=== PATIENT | male | born 1980 | race African-American/Black ===

== ENCOUNTER 2020-01-14 09:10 | Emergency (ER) | payer OTHER, BC ==
--- NOTE | 2020-01-14 09:37 | EDM.PDOC ---
ED HPI GENERAL MEDICAL PROBLEM - General Chief Complaint: Laceration Time Seen by Provider: 01/14/20 09:29 Source of Information: Reports: Patient - History of Present Illness INITIAL COMMENTS - FREE TEXT/NARRATIVE: Shad is a 39 y/o male who comes to the ER with a work related injury. He was at his job at the [employer] and he was unfolding a chair and got his right index finger caught. He sustained a laceration on the distal portion of the right index finger. He reports getting an updated tetanus in August 2019. 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: Dressing(s) - Related Data Allergies Allergy/AdvReac Type Severity Reaction Status Date / Time No Known Allergies Allergy Verified 01/14/20 09:29 Home Meds: Home Meds Amoxicillin/Clavulanate K [Augmentin 875-125 MG] 1 tab PO BID 7 Days #14 tablet 01/14/20 [Rx] Hydrocodone/Acetaminophen [Hydrocodon-Acetaminophen 5-325] 1 - 2 each PO Q6H # 10 tablet 01/14/20 [Rx] Ibuprofen 800 mg PO Q8H #60 tablet 01/14/20 [Rx] ED ROS GENERAL - Review of Systems Review Of Systems: See Below Constitutional: Reports: No Symptoms HEENT: Reports: No Symptoms Respiratory: Reports: No Symptoms Cardiovascular: Reports: No Symptoms Endocrine: Reports: No Symptoms GI/Abdominal: Reports: No Symptoms : Reports: No Symptoms Musculoskeletal: Reports: Other (right index finger pain) Skin: Reports: Other (laceration to right index finger) Neurological: Reports: No Symptoms Psychiatric: Reports: No Symptoms Hematologic/Lymphatic: Reports: No Symptoms Immunologic: Reports: No Symptoms ED EXAM, SKIN/RASH Exam: See Below Exam Limited By: No Limitations General Appearance: Alert, WD/WN, No Apparent Distress (Adult male, NAD.) Ears: Hearing Grossly Normal Nose: Normal Inspection Throat/Mouth: Normal Voice, No Airway Compromise Respiratory/Chest: No Respiratory Distress Cardiovascular: Regular Rate, Rhythm GI/Abdominal: Soft (Male) Exam: Deferred Rectal (Males) Exam: Deferred Back Exam: Other (Deferred) Extremities: Other (Note spiral type laceration about 2.5 cm that wraps aroudn the distal end of the right index finger, mild bleeding. Edges of the laceation irregular in places. DIP and PIP joints wnl in digit.) Neurological: Alert, Oriented, CN II-XII Intact, Normal Cognition, Normal Gait Psychiatric: Normal Affect, Normal Mood Skin: Warm, Dry, Intact, Normal Color, No Rash Lymphatic: No Adenopathy ED SKIN PROCEDURES - Laceration/Wound Repair Right Sides of Distal Digit - 2nd (Index) Appearance: Irregular, Clean Distal NVT: Neuro & Vascular Intact, No Tendon Injury Anesthetic Type: Local Local Anesthesia - Lidocaine (Xylocaine): 1% with EPI Local Anesthetic Volume: Other (Digital block of right index finger done) Skin Prep: Chlorhexidine (Hibiciens), Providone-Iodine (Betadine), Saline, Sterile Drape Exploration/Debridement/Repair: Wound Explored, Wound Margins Revised Closed with: Sutures Lac/Wound length In cm: 2.5 Suture Size: 3-0 # of Sutures: 6 (Ethilon) Suture Type: Interrupted Sterile Dressing Applied: Provider Tetanus Status Addressed: Yes (Up to date) Complications: No Complication Description: Xray prior to laceration repair, notes fx of the distal phalynx. Patient to be given Ancef 2gm IM and placed on oral abx. Progress/Comments: Patient tolerated the repair well. He was given wound care instructions. He remained stable after the procedure. 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 Xray was obtained of the right index finger to rule out open fracture. Xray was reviewed and notes a fracture of the distal phalynx, non-displaced. The laceration was repaired. See Procedure Note. Patient was given Ancef 2gm due to the open fx. Will start him on a course of Augmentin also for the fx. Discharge instructions were reviewed with the patient and he left the ER in stable condition. Last Recorded V/S: Last Vital Signs Temp 36.1 C 01/14/20 09:15 Pulse 80 01/14/20 09:15 Resp 16 01/14/20 09:15 BP 140/101 H 01/14/20 09:15 Pulse Ox 99 01/14/20 09:15 - Orders/Labs/Meds Orders: Active Orders 24 hr Category Date Time Status Fingers Second Digit Rt F6 [CR] Stat Exams 01/14/20 09:31 Ordered Lidocaine 1% w/EPINEPHrine [Xylocaine 1% with Med 01/14/20 09:48 Ordered EPINEPHrine 1:100,000] 20 ml INFILT ONETIME PRN Medication Orders Lidocaine/Epinephrine (Xylocaine 1% With Epinephrine 1:100,000) 20 ml INFILT ONETIME PRN PRN Reason: Other Last Admin: 01/14/20 09:56 Dose: 20 ml Meds: Medications Generic Name Dose Route Start Last Admin Trade Name José Miguelq PRN Reason Stop Dose Admin Lidocaine/Epinephrine 20 ml 01/14/20 09:48 01/14/20 09:56 Xylocaine 1% With Epinephrine 1:100,000 INFILT 20 ml ONETIME PRN Administration Other Departure - Departure Time of Disposition: 10:15 Disposition: Home, Home Health Agency 06 Condition: Good Clinical Impression: Open fracture of distal phalanx of digit of right hand, Work related injury Laceration of index finger Qualifiers: Encounter type: initial encounter Foreign body presence: without foreign body Laterality: right - Discharge Information *PRESCRIPTION DRUG MONITORING PROGRAM REVIEWED*: Yes *COPY OF PRESCRIPTION DRUG MONITORING REPORT IN PATIENT GEOVANNA: Not Applicable Prescriptions: Amoxicillin/Clavulanate K [Augmentin 875-125 MG] 1 tab PO BID 7 Days #14 tablet Hydrocodone/Acetaminophen [Hydrocodon-Acetaminophen 5-325] 1 - 2 each PO Q6H # 10 tablet Ibuprofen 800 mg PO Q8H #60 tablet Instructions: Finger Fracture, Adult, [id number], Pain Medicine Instructions , [id number], Sutures, Korey, or Adhesive Wound Closure, [id number] Forms: ED Department Discharge, ED Return to Work/School Form Additional Instructions: -Augmentin 875/125mg 1 tablet oral twice daily for 7 days #14(Rx) -Ibuprofen 800mg oral every 8 hours as needed for pain/inflammation #60(Rx) -Hydrocodone/APAP 5/325mg 1-2 tablets oral every 4-6 hours as needed for severe pain due to the the fracture #10(Rx) -Keep the wound covered for 24 hours then you may remove the bandage and wash the area with soap and water. Apply antibiotic ointment to the area for 2-3 days and cover with a bandaid. You may begin to leave to wound open to air if you are able to keep it clean and dry. -Wear the finger splint that was provided to you from the ER to protect the area and also to help with pain control for the fracture of the distal bone in the your index finger. -Watch for symptoms of infection including fever, redness, or drainage and seek medical care if this occurs. -Follow up in 10 days at the clinic to have the sutures removed and the area rechecked. -Return to the ER if you have any other concerns -Work note provided for you. You will need to be on light duty for the next 10 days while to wound heals. Sepsis Event Note - Evaluation Sepsis Screening Result: No Definite Risk - Focused Exam Vital Signs: Vital Signs Temp Pulse Resp BP Pulse Ox 01/14/20 09:15 36.1 C 80 16 140/101 H 99 Date Exam was Performed: 01/14/20 Time Exam was Performed: 10:10 - My Orders Last 24 Hours: My Active Orders 01/14/20 09:31 Fingers Second Digit Rt F6 [CR] Stat 01/14/20 09:48 Lidocaine 1% w/EPINEPHrine [Xylocaine 1% with EPINEPHrine 1:100,000] 20 ml INFILT ONETIME PRN - Assessment/Plan Last 24 Hours: My Active Orders 01/14/20 09:31 Fingers Second Digit Rt F6 [CR] Stat 01/14/20 09:48 Lidocaine 1% w/EPINEPHrine [Xylocaine 1% with EPINEPHrine 1:100,000] 20 ml INFILT ONETIME PRN
[2020-01-14] MEDS ORDERED: Lidocaine 1% with EPINEPHrine 1:100,000 20 ML MDV INFILT PRN (09:48)
[2020-01-14] MEDS ORDERED: ceFAZolin 1 GM Vial IM ONE (10:25)
--- NOTE | 2020-01-14 13:53 | CR ---
[id number] RAD/RAD Fingers Right EXAM: RAD Fingers Right INDICATION: CAUGHT IN FOLDING CHAIR. COMPARISON: None. DISCUSSION: There is an acute intra-articular fracture involving the dorsal and radial aspect of the distal second phalanx base and encompassing about 20% of the articular surface. There is mild step-off and distraction at the articular surface and this injury may involve the extensor mechanism. IMPRESSION: 1. Acute intra-articular fracture involving the distal second phalanx. Juan Stern MD 01/14/20 2829 Thank you for allowing us to participate in the care of your patient.
== END 2020-01-14 11:03 | disposition home health service (06) ==
LOC: VM.ED 09:10
DX: S62.630B Displaced fracture of distal phalanx of right index finger, initial encounter for open fracture (principal); W23.0XXA Caught, crushed, jammed, or pinched between moving objects, initial encounter; Y99.0 Civilian activity done for income or pay
CPT/HCPCS: 12001; 73140-F6; 96372; 99283-25; J0690